=== PATIENT | female | born 1975 | race African-American/Black ===

== ENCOUNTER 2024-06-28 14:45 | Emergency (ER) | payer BC ==
[~2024-06-28] VITALS: Ht 162.6 cm; Wt 127.0 kg
[~2024-06-28 14:45] MED LIST: DIME240C2 PO; LOSA100T31 PO; NIFE-34 PO; ROSU20TA32 PO
[2024-06-28] MEDS ORDERED: PRED50TA PO (15:49)
[2024-06-28] MEDS ORDERED: AZIT250T13 PO (15:49)
[2024-06-28] MEDS: ALBUTEROL FS 2.5 MG/3 ML VIAL.NEB NEB ONE (16:55)
[2024-06-28] MEDS: IPRATROPIUM NEB FS 0.5 MG/2.5 ML AMPUL.NEB NEB ONE (16:55)
[2024-06-28 16:58] VITALS: O2SAT 100
[2024-06-28] MEDS ORDERED: ALBUTEROL FS 2.5 MG/3 ML VIAL.NEB ONE (17:09)
[2024-06-28] MEDS ORDERED: IPRATROPIUM NEB FS 0.5 MG/2.5 ML AMPUL.NEB ONE (17:09)
[2024-06-28 17:29] VITALS: BP 140/66; TEMP 98; O2SAT 100
== END 2024-06-28 17:29 | disposition home or self-care (01) ==
LOC: ER 14:48
DX: R05.9 Cough, unspecified (principal); R06.02 Shortness of breath; J45.901 Unspecified asthma with (acute) exacerbation; I10 Essential (primary) hypertension; Z79.52 Long term (current) use of systemic steroids; Z86.79 Personal history of other diseases of the circulatory system; Z79.899 Other long term (current) drug therapy; Z88.2 Allergy status to sulfonamides; Z60.2 Problems related to living alone